=== PATIENT | male | born 1990 | race Caucasian/White ===

== ENCOUNTER 2016-07-28 12:27 | Emergency (ER) ==
[2016-07-28] MEDS ORDERED: ZOFRAN ODT PO ONE (13:35)
[2016-07-28] MEDS ORDERED: LEVSIN-SL SL ONE (13:36)
--- NOTE | 2016-07-28 13:43 | PROVIDER DOCUMENTATION ---
HPI-Abdominal Pain/GI Problem - General Source: patient - History of Present Illness-ABD Nature of Presenting Problems: Pt is 26 y/o M presents to the ED with abdominal pain. Pt states seen at [facility] and was diagnosed with gastroenteritis. Pt states pain has worsened. Pt states D and N but denies V. Abdominal Pain Onset Location: reports: generalized abdomen Pain Radiation: reports: no radiation Quality of Pain: reports: cramping Severity in ED: reports: mild Onset/Duration: reports: unsure Timing: reports: still present Activities at Onset: reports: light activity Exposure to sick contacts?: No Modifying Factors: improves with: nothing Associated Symptoms: reports: diarrhea, nausea. denies: vomiting Last BM: unsure Dark Stools Present?: reports: none noticed Rectal Bleeding: reports: none Rectal Pain: reports: none Emesis Description: reports: none Bruising or Bleeding Gums?: No Similar Symptoms Previously?: Yes Recently seen or treated by another doctor?: Yes <Zari Walker - Last Filed: 07/28/16 13:38> <Sophy Ruiz - Last Filed: 07/28/16 15:29> - General Chief Complaint: Return/Recheck Stated Complaint: DIARRHEA/ABD PAIN Time Seen by Provider: 07/28/16 13:26 Allergies/Adverse Reactions: Patient Allergies Allergy/AdvReac Type Severity Reaction Status Date / Time No Known Allergies Allergy Verified 07/02/16 12:29 Home Medications: Home Medication List Medication Instructions Recorded Confirmed Last Taken Type Magnesium 250 mg PO BID 09/06/13 07/02/16 07/02/16 History Potassium Chloride E.r. [Klor-Con] 60 meq PO BID #60 tablet 11/21/13 07/02/16 Rx Spironolactone [Aldactone] 50 mg PO BID #60 tablet 11/21/13 07/02/16 07/02/16 Rx Dicyclomine [Bentyl] 10 mg PO AC + HS #20 capsule 06/20/16 07/02/16 07/02/16 Rx Metronidazole [Flagyl] 500 mg PO BID #20 tablet 06/20/16 07/02/16 07/02/16 Rx Ciprofloxacin HCl [Cipro] 500 mg PO BID #14 tablet 07/02/16 Unknown Rx Omeprazole 20 mg PO DAILY #30 capsule. 07/02/16 Unknown Rx Ondansetron [Zofran] 4 mg PO Q6H PRN PRN #20 tablet 07/02/16 Unknown Rx Ondansetron [Zofran] 4 mg PO Q6H PRN PRN #20 tablet 07/28/16 Unknown Rx Review of Systems - Adult - REVIEW OF SYSTEMS - ADULT Constitutional: denies: chills, fever Eyes: denies: blurred vision, double vision Ears, Nose, Mouth & Throat: denies: ear pain, nose pain, throat pain Cardiovascular: reports: irregular heart rate (tachy). denies: chest pain, heart murmur Respiratory: denies: cough, shortness of breath, wheezing Gastrointestinal: reports: abdominal pain, diarrhea, nausea. denies: vomiting Genitourinary: denies: dysuria, hematuria Musculoskeletal: denies: bone pain, joint pain, neck pain Integumentary: denies: hives, itching Neurological: denies: dizziness/vertigo, headache/migraines Psychiatric: reports: no symptoms reported Endocrine: reports: no symptoms reported Hematologic/Lymphatic: reports: no symptoms reported Allergic/Immunologic: reports: no symptoms reported All Other Systems: Reviewed and Negative <Zari Walker - Last Filed: 07/28/16 13:38> Past History - Adult - PAST MEDICAL HISTORY-ADULT Review of Records: reports: Nursing Assessment Review, Medications Reviewed, Social history reviewed & non-contributory. 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 on dangers of tobacco.: discussed smoking cessation Substance Use: alcohol, marijuana Alcohol Use Frequency: occasionally Number of drinks per typical drinking period:: 2 drinks Living Situation: family <Zari Walker - Last Filed: 07/28/16 13:38> Physical Exam-General - PHYSICAL EXAM-ADULT Initial Vital Signs Reviewed: Yes - CONSTITUTIONAL General Appearance: appears well, alert, no apparent distress - EYES Eyes: PERRL/EOMI, pink conjunctivae, fundi clear, no AV nicking - HEAD, EARS, NOSE, MOUTH & THROAT HENMT: normocephalic/atraumatic, moist mucous membranes, normal ENT inspection, TMs normal, pharynx normal - NECK Neck: non-tender, full range of motion, supple, normal inspection - RESPIRATORY Respiratory: chest non-tender, lungs clear, normal breath sounds, no pleuratic chest pain, no respiratory distress, no accessory muscle use - CARDIOVASCULAR Cardiovascular: normal peripheral pulses, no edema, no gallop, no JVD, no murmur , tachycardia - GASTROINTESTINAL (ABDOMEN) Abdominal Exam: non tender, soft, no organomegaly, no pulsatile mass, abnormal bowel sounds (hypo active) - LYMPHATIC Lymphatic: no adenopathy - MUSCULOSKELETAL Back Exam: normal inspection, no CVA tenderness, no vertebral tenderness Extremity: normal range of motion, non-tender, normal gait, normal inspection, no pedal edema, no calf tenderness, normal capillary refill - SKIN Integumentary: normal color, normal turgor, warm/dry - NEUROLOGIC Neurologic: grossly normal - PSYCHIATRIC Psych/Mental Status: normal mood/affect, oriented x 3 <Zari Walker - Last Filed: 07/28/16 13:38> Progress - PLAN OF CARE/RESULTS Progress/Plan/Lab Results: Discussed results and plan of care with patient. Patient agrees with plan and verbalizes understanding. Vital Signs Temp Pulse Resp BP Pulse Ox 07/28/16 12:46 98 F 110 H 18 134/87 98 No Known Allergies Allergy (Verified 07/02/16 12:29) Magnesium 250 mg PO BID 09/06/13 Potassium Chloride E.r. [Klor-Con] 60 meq PO BID #60 tablet 11/21/13 Spironolactone [Aldactone] 50 mg PO BID #60 tablet 11/21/13 Dicyclomine [Bentyl] 10 mg PO AC + HS #20 capsule 06/20/16 Metronidazole [Flagyl] 500 mg PO BID #20 tablet 02/03/17 Ciprofloxacin HCl [Cipro] 500 mg PO BID #14 tablet 07/02/16 Omeprazole 20 mg PO DAILY #30 capsule. 07/02/16 Ondansetron [Zofran] 4 mg PO Q6H PRN PRN #20 tablet 07/02/16 Orders Category Date Time Status FLAT/UPRIGHT ABD/1 VIEW CHEST [RAD] Stat Exams 07/28/16 14:48 Taken Hyoscyamine Subl [Levsin-Sl] Med 07/28/16 13:36 Discontinued 0.125 mg SL NOW ONE Ondansetron Odt [Zofran Odt] Med 07/28/16 13:35 Discontinued 4 mg PO NOW ONE - XRAY 1 XRAY Study: Chest, Abdomen XRAY Interpretation: Negative (Adaitz) <Sophy Ruiz - Last Filed: 07/28/16 15:29> Departure <Zari Walker - Last Filed: 07/28/16 13:38> - Departure Time of Disposition Order: 15:27 Certified Medical Emergency: Emergent <Sophy Ruiz - Last Filed: 07/28/16 15:29> - Departure DIAGNOSIS: Diarrhea Qualifiers: Diarrhea type: unspecified type Qualified Code(s): R19.7 - Diarrhea, unspecified Abdominal pain Qualifiers: Abdominal location: unspecified location Qualified Code(s): R10.9 - Unspecified abdominal pain Disposition: HOME 01 Condition: Stable Additional Instructions: Follow up with primary care physician Follow up with ornithology teacher Take medications as directed Continue taking medications previously prescribed Return to ED for any concerns or worsening of symptoms ED Follow Up Instructions: You have been treated by a care provider in the Emergency Department. These instructions are being provided to you so you can have an understanding of how to care for yourself upon discharge. Upon discharge from the Emergency Department, you are responsible for making arrangements for follow-up care by a physician of your choice. Take all prescribed medications as directed. Return to the Emergency Department immediately for any new or worsening symptoms. You may call the Physician Referral phone number at [phone] to obtain a list of Physicians who are taking new patients. Prescriptions: Ondansetron [Zofran] 4 mg PO Q6H PRN PRN #20 tablet PRN Reason: Nausea Referrals: None,PCP [Primary Care Provider] - Regino Castellanos MD [STAFF PHYSICIAN] - Attestation - Scribe Verification/Attestation Scribe:: Zari Walker Acting as Scribe for:: Sophy Ruiz Scribe documention review:: This chart was documented by a scribe and accurately reflects the service the provider performed and the decisions made by the provider. <Zari Walker - Last Filed: 07/28/16 13:38> - Physician/ NICK Attestation Patient care was provided by Advanced Practice Provider:: Yes Advanced Practice Provider:: Sophy Ruiz Advanced Practice Provider documentation review:: The Mid-level provider documentation, treatment plan and medical decision making was reviewed by the physician who agrees with all treatment and medical decision making by the MLP. <Sophy Ruiz - Last Filed: 07/28/16 15:29> Physician Attestation
[2016-07-28 15:43] VITALS: BP 121/65
--- NOTE | 2016-07-28 18:17 | Diag Imaging Result Document ---
PROCEDURE NAME: FLAT/UPRIGHT ABD/1 VIEW CHEST - 07/28/2016 FRONTAL CHEST X-RAY AND 2 VIEWS OF THE ABDOMEN: COMPARISON: 06/24/2016. FINDINGS: The chest is clear. There is a nonobstructive bowel gas pattern. No free air or abnormal calcifications. IMPRESSION: No acute disease.
== END 2016-07-28 15:42 | disposition home or self-care (01) ==
LOC: P.ED 12:27
DX: R10.9 Unspecified abdominal pain (principal); R19.7 Diarrhea, unspecified; R00.0 Tachycardia, unspecified; R11.0 Nausea; E26.81 Bartter's syndrome; F17.210 Nicotine dependence, cigarettes, uncomplicated; Z71.6 Tobacco abuse counseling; Z79.899 Other long term (current) drug therapy
CPT/HCPCS: 74022

== ENCOUNTER 2018-10-27 00:08 | Inpatient (IN) ==
[2018-10-27 01:05] LABS: BILIRUBIN URINE NEGATIVE (NEGATIVE); BLOOD URINE NEGATIVE (NEGATIVE); COLOR YELLOW; GLUCOSE URINE NEGATIVE (NEGATIVE); KETONE URINE NEGATIVE (NEGATIVE); LEUKOCYTES URINE NEGATIVE (NEGATIVE); NITRITE URINE NEGATIVE (NEGATIVE); PH URINE 6.5; PROTEIN URINE NEGATIVE (NEGATIVE); SP GRAVITY URINE 1.014; TURBIDITY URINE CLEAR (CLEAR); UR EPITHELIAL CELLS <10 /HPF (<10); URINE BACTERIA NEGATIVE /HPF; URINE RBC <10 /HPF (<10); URINE SOURCE CLEAN CATCH; URINE WBC <10 /HPF (<10); UROBILINOGEN URINE NORMAL (NORMAL)
[2018-10-27 01:18] LABS: BASO# 0.06 X1000 (0.0-0.2); BASO% 0.7 % (0.0-0.8); EOS# 0.57 X1000 (0.0-0.7); EOS% 6.7 % (0.0-10.0); HEMATOCRIT 44.5 % (42.0-52.0); HEMOGLOBIN 16.6 g/dL (14.0-18.0); LYMPH% 40.2 % (20.5-51.1); MCHC 37.3 g/dL (33-37); MCV 80.5 FL (81-99); MONO# 0.65 X1000 (0.11-0.59); MONO% 7.7 % (1.7-9.3); MPV 10.4 FL (7.4-10.4); NEUT# 3.78 X1000 (1.4-6.5); NEUT% 44.7 % (42.2-75.2); PLT 285 X1000 (130-400); RBC 5.53 XMIL (4.7-6.1); RDW 13.3 % (11.5-14.5); WBC 8.46 X1000 (4.8-10.8)
[2018-10-27] MEDS ORDERED: POTASSIUM CHLORIDE 20% LIQUID PO ONE (01:26)
[2018-10-27 01:29] LABS: AGAP 15; ALB/GLOB RATIO 1.5; ALBUMIN 4.7 g/dL (3.5-5.0); ALKALINE PHOSPHATASE 66 U/L (32-122); BUN 11 mg/dL (8-22); CALCIUM 9.1 mg/dL (8.8-10.2); CHLORIDE 95 mmol/L (98-107); COSMO 277; CREATININE 0.8 mg/dL (0.7-1.2); ESTIMATED GFR > 60; GLUCOSE 95 mg/dL (70-104); GOT 20 U/L (10-34); GPT 18 U/L (10-44); SODIUM 139 mmol/L (136-145); TCO2 29 mmol/L (25-35); TOTAL BILIRUBIN 0.35 mg/dL (0.20-1.00); TOTAL PROTEIN 7.9 g/dL (6.3-8.3)
[2018-10-27] MEDS ORDERED: MAGNESIUM SULFATE 2 GM/S.W.I. 2 GM/50 ML IVPB IV ONE ×3 (01:49→14:39)
--- NOTE | 2018-10-27 02:37 | PROVIDER DOCUMENTATION ---
This chart was entered by Delaney Rendon Scribe, acting as scribe for Diallo Molina MD. HPI-General Adult - General Chief Complaint: Back Pain Stated Complaint: KIDNEY PAIN Time Seen by Provider: 10/27/18 00:33 Source: patient Allergies/Adverse Reactions: Patient Allergies Allergy/AdvReac Type Severity Reaction Status Date / Time No Known Allergies Allergy Verified 10/12/18 03:52 Home Medications: Home Medication List Medication Instructions Recorded Confirmed Last Taken Type Magnesium 250 mg PO BID 11/10/17 10/12/18 10/11/18 History Potassium Chloride E.r. [Klor-Con] 60 meq PO BID 11/10/17 10/12/18 10/11/18 History Spironolactone 50 mg PO BID 11/10/17 10/12/18 10/11/18 History - History of Present Illness -Gen Adult Nature of Presenting Problems: 28 yom presents to er w/ c/o lower back pain. pt has kidney disorder, gitelman's syndrome, and believes it is causing his back pain. pt denies nvd, incontinence and fever. pt is a smoker Review of Systems - Adult - REVIEW OF SYSTEMS - ADULT Constitutional: reports: no symptoms reported Eyes: reports: no symptoms reported Ears, Nose, Mouth & Throat: reports: no symptoms reported Cardiovascular: reports: no symptoms reported Respiratory: reports: no symptoms reported Gastrointestinal: reports: no symptoms reported Genitourinary: reports: no symptoms reported Musculoskeletal: reports: see HPI, back pain (lower back poss due to gitelman's syndrome). denies: bone pain, frequent leg cramps, muscle weakness Integumentary: reports: no symptoms reported Neurological: reports: no symptoms reported Psychiatric: reports: no symptoms reported Endocrine: reports: no symptoms reported Hematologic/Lymphatic: reports: no symptoms reported Allergic/Immunologic: reports: no symptoms reported All Other Systems: Reviewed and Negative Past History - Adult - PAST MEDICAL HISTORY-ADULT Review of Records: reports: Old Records Reviewed, Nursing Assessment Review, Medications Reviewed, Social history reviewed & non-contributory. 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 on dangers of tobacco.: Discussed manners to quit use, and f/u contacts for add'l counseling. Substance Use: alcohol Alcohol Use Frequency: occasionally Physical Exam-General - PHYSICAL EXAM-ADULT Initial Vital Signs Reviewed: Yes - CONSTITUTIONAL General Appearance: alert, mild distress. negative: lethargic, slow to respond, obtunded - EYES Eyes: PERRL/EOMI, pink conjunctivae - HEAD, EARS, NOSE, MOUTH & THROAT HENMT: normocephalic/atraumatic, moist mucous membranes, normal ENT inspection - NECK Neck: non-tender, full range of motion, supple, normal inspection - RESPIRATORY Respiratory: chest non-tender, lungs clear, normal breath sounds - CARDIOVASCULAR Cardiovascular: normal peripheral pulses, regular rate, rhythm - GASTROINTESTINAL (ABDOMEN) Abdominal Exam: normal bowel sounds, non tender, soft - MUSCULOSKELETAL Back Exam: negative: normal inspection, ecchymosis, swelling Extremity: normal range of motion, non-tender, normal inspection Peripheral Pulses: radial (R): 2+, radial (L): 2+ - SKIN Integumentary: normal color, normal turgor, warm/dry - NEUROLOGIC Neurologic: grossly normal, no motor/sensory deficits - PSYCHIATRIC Psych/Mental Status: normal mood/affect, normal thought content, normal thought process, oriented x 3 Progress - PLAN OF CARE/RESULTS Progress/Plan/Lab Results: Vital Signs - 8 hr 10/27/18 00:16 Temperature 99.0 F Pulse Rate 87 Respiratory Rate 15 Blood Pressure 138/92 O2 Sat by Pulse Oximetry 100 Orders Category Date Time Status CBC WITH ELECTRONIC DIFF [HEME] Stat Lab 10/27/18 00:33 Uncollected COMPREHENSIVE METABOLIC PANEL [CHEM] Stat Lab 10/27/18 00:33 Uncollected URINALYSIS W/POSS RFLX CULT [URINALYSIS] Stat Lab 10/27/18 00:33 Uncollected Result Diagrams: 10/27/18 00:26 10/27/18 00:26 - EKG 1 Time of EKG reading by physician:: 01:54 EKG Read and Signed by:: Diallo Molina Rate: 76 Rhythm: sinus QRS: normal MA Interval: normal Departure - Departure Date of Disposition Decision: 10/27/18 Time of Disposition Decision: 02:36 DIAGNOSIS: Gitelman syndrome, Hypokalemia, Hypomagnesemia Disposition: ADMITTED INPATIENT 09 Certified Medical Emergency: Emergent Condition: Serious Referrals and Follow-Ups: None,PCP [Primary Care Provider] - - Critical Care Note This patient required my direct & personal management of CC.: Yes Total Time (mins): 31 Critical Care Statement: This patient required my direct personal management to treat or rule out processes, the absence of which, could potentiallly result in sudden, clinically significant life or limb threatening deterioration. Attestation - Physician/ NICK Attestation Patient care was provided by Advanced Practice Provider:: No The physician spent face to face time with patient:: Yes Advanced Practice Provider documentation review:: Supervising physician onsite and consulted in the evaluation and care of this patient. The physician did have a face to face encounter with the patient. This chart was documented by the indicated scribe, (Delaney Rendon Scribe) and accurately reflects the services I performed and decisions made by me, Diallo Molina MD, as attested by the provider's signature.
[2018-10-27] MEDS ORDERED: NS 1,000 ML IV SCH (03:30)
[2018-10-27] MEDS ORDERED: DUONEB (A & A) INH PRN (03:33)
[2018-10-27] MEDS: POTASSIUM CHLORIDE 20 MEQ/SWI 20 MEQ/100 ML IVPB IV SCH ×2 (05:33→08:00)
--- NOTE | 2018-10-27 06:38 | EKG Report ---
Test Performed on : 10/27/2018 01:50:33 AM Test Reason : hypokalemia Blood Pressure : / mmHG Vent. Rate : 076 BPM Atrial Rate : 076 BPM P-R Int : 156 ms QRS Dur : 116 ms QT Int : 376 ms P-R-T Axes : 080 066 072 degrees QTc Int : 423 ms Normal sinus rhythm. Possible Left atrial enlargement Incomplete right bundle branch block Borderline ECG When compared with ECG of 12-OCT-2018 04:33, (Unconfirmed) No significant change was found Unconfirmed Result
--- NOTE | 2018-10-27 06:41 | Diag Imaging Result Doc PS360 ---
THORACO-LUMBAR SPINE - 10/27/2018 INDICATION: back pain TECHNIQUE: Three views COMPARISON: Chest ray 11/10/2017 FINDINGS: Alignment is anatomic. Vertebral body heights and intervertebral disc spaces are preserved. Neural foramina are patent. Soft tissues are clear. IMPRESSION: Negative exam. Electronically signed by Kp Beltran 10/27/2018 6:38 AM
[2018-10-27] MEDS: ULTRAM PO PRN ×2 (08:01→20:36)
[2018-10-27 08:27] LABS: MAGNESIUM 2.2 mg/dL (1.5-2.7); POTASSIUM 2.7 mmol/L (3.5-5.1)
[2018-10-27] MEDS ORDERED: KLOR-CON PO SCH (09:00)
[2018-10-27 14:18] LABS: MAGNESIUM 1.7 mg/dL (1.5-2.7); POTASSIUM 2.7 mmol/L (3.5-5.1)
[2018-10-27] MEDS ORDERED: KLOR-CON PO ONE (14:39)
[2018-10-27] MEDS: ALDACTONE PO SCH (20:36)
[2018-10-27] MEDS: MAG-OX PO SCH (20:36)
[2018-10-27] MEDS: KLOR-CON PO SCH (20:37)
[2018-10-27 21:41] LABS: MAGNESIUM 2.1 mg/dL (1.5-2.7); POTASSIUM 2.6 mmol/L (3.5-5.1)
[2018-10-27] MEDS ORDERED: NORCO-7.5 PO ONE (22:31)
[2018-10-28] MEDS ORDERED: MORPHINE IV ONE (02:03)
[2018-10-28] MEDS ORDERED: NEUTRA-PHOS PO SCH (02:15)
[2018-10-28 05:18] LABS: BASO# 0.05 X1000 (0.0-0.2); BASO% 0.6 % (0.0-0.8); EOS# 0.64 X1000 (0.0-0.7); EOS% 7.9 % (0.0-10.0); HEMATOCRIT 46.4 % (42.0-52.0); HEMOGLOBIN 16.7 g/dL (14.0-18.0); LYMPH# 2.94 X1000 (1.2-3.4); LYMPH% 36.2 % (20.5-51.1); MCH 29.7 PG (27-31); MCV 82.6 FL (81-99); MONO% 9.9 % (1.7-9.3); MPV 10.4 FL (7.4-10.4); NEUT# 3.69 X1000 (1.4-6.5); NEUT% 45.4 % (42.2-75.2); PLT 253 X1000 (130-400); RBC 5.62 XMIL (4.7-6.1); RDW 13.7 % (11.5-14.5); WBC 8.12 X1000 (4.8-10.8)
[2018-10-28 05:52] LABS: MAGNESIUM 2.1 mg/dL (1.5-2.7); PHOSPHORUS 3.1 mg/dL (2.7-4.5)
[2018-10-28 05:57] LABS: AGAP 11; BUN 10 mg/dL (8-22); CALCIUM 8.8 mg/dL (8.8-10.2); CHLORIDE 99 mmol/L (98-107); COSMO 271; CREATININE 0.7 mg/dL (0.7-1.2); ESTIMATED GFR > 60; GLUCOSE 95 mg/dL (70-104); POTASSIUM 3.2 mmol/L (3.5-5.1); SODIUM 136 mmol/L (136-145); TCO2 26 mmol/L (25-35)
[2018-10-28] MEDS: KLOR-CON PO SCH (08:10)
[2018-10-28] MEDS: ALDACTONE PO SCH (08:10)
[2018-10-28] MEDS: MAG-OX PO SCH (08:11)
[2018-10-28 11:34] VITALS: BP 123/90
== END 2018-10-28 12:55 | disposition home or self-care (01) | DRG 700 ==
LOC: ED 00:08 → 3S 04:49 → SUATTDRO 04:49
PROVIDERS: ATTEND Internal Medicine
CPT/HCPCS: 72080; 80048; 80053; 81001; 83735; 83970; 84100; 84132; 85025; 85651; 86140; 87040; 87088; 93005; 94761; A9270; J2270; J3475; J3480; J7030

== ENCOUNTER 2019-03-15 05:28 | Observation (INO) ==
--- NOTE | 2019-03-15 05:48 | PROVIDER DOCUMENTATION ---
HPI-Musculoskeletal Pain/Inj - GENERAL Chief Complaint: Flank Pain Stated Complaint: FLANK PAIN Time Seen by Provider: 03/15/19 05:42 Source: patient - HX OF PRESENT ILLNESS-MUSKULOSKELTAL Nature of Presenting Problem: thursday am started having bilateral flank pain persisted until now no change in his ability to urinate no fever or chills. has gitelman syndrome Quality of Pain: reports: aching Severity in ED: moderate Onset/Duration: 24 hours ago Timing: still present, getting worse Modifying Factors: improves with: nothing Any recent injury?: No Locality of Occurance: Home Similar Symptoms Previously?: Yes Recently seen or treated by another doctor?: No Review of Systems - Adult - REVIEW OF SYSTEMS - ADULT Constitutional: reports: no symptoms reported Eyes: reports: no symptoms reported Ears, Nose, Mouth & Throat: reports: no symptoms reported Cardiovascular: reports: no symptoms reported Respiratory: reports: chronic cough, wheezing, other (copd) Gastrointestinal: denies: hematemesis, diarrhea, vomiting Genitourinary: reports: flank pain. denies: dysuria, discharge, frequency, hematuria, urinary retention, urgency Musculoskeletal: reports: back pain Integumentary: reports: no symptoms reported Neurological: reports: no symptoms reported Psychiatric: reports: no symptoms reported Endocrine: reports: no symptoms reported Hematologic/Lymphatic: reports: no symptoms reported Allergic/Immunologic: reports: no symptoms reported Past History - Adult - PAST MEDICAL HISTORY-ADULT Review of Records: reports: Nursing Assessment Review, Medications Reviewed, Social history reviewed & non-contributory. 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) Musculoskeletal: reports: denies history Neurological: reports: denies history Psychiatric: reports: anxiety Endocrine/Immune: reports: denies history Other Conditions: reports: denies history - PRIOR SURGERIES/PROCEDURES Surgical/Procedure History: reports: other (wisdom teeth) - IMMUNIZATION STATUS Childhood Immunizations: See Nurse Assessment Flu Vaccine: See Nurse Assessment - FAMILY HISTORY Family History: reviewed, not pertinent - SOCIAL HISTORY Smoking: cigarettes Physical Exam-Injury Related - Physical Exam-Injury Related General Appearance: appears well, alert, no apparent distress Eyes: PERRL/EOMI, pink conjunctivae Head, Ears, Nose, Mouth & Throat: normocephalic/atraumatic, moist mucous membranes Neck: non-tender, full range of motion, supple Respiratory: lungs clear, no respiratory distress Cardiovascular: regular rate, rhythm Abdominal Exam: normal bowel sounds, non tender, soft Lymphatic: no adenopathy Back Exam: CVA tenderness Extremity: normal range of motion, non-tender, normal gait Integumentary: normal color, warm/dry, blanching Neurologic: grossly normal Psych/Mental Status: oriented x 3 Progress - PLAN OF CARE/RESULTS Progress/Plan/Lab Results: Vital Signs - 8 hr 03/15/19 05:32 03/15/19 05:46 Temperature 97.8 F Pulse Rate 90 Respiratory Rate 18 Blood Pressure 117/75 Laboratory Results - last 24 hr 03/15/19 03/15/19 03/15/19 05:38 05:45 05:45 WBC 10.62 RBC 4.79 Hgb 13.9 L Hct 40.3 L MCV 84.1 MCH 29.0 MCHC 34.5 RDW Std Deviation 13.1 Plt Count 296 MPV 10.1 Immature Gran % (Auto) 0.4 Neut % (Auto) 54.1 Lymph % (Auto) 29.3 [place] % (Auto) 9.3 Eos % (Auto) 6.1 Baso % (Auto) 0.8 Immature Gran # (Auto) 0.04 Neut # (Auto) 5.75 Lymph # (Auto) 3.11 [place] # (Auto) 0.99 H Eos # (Auto) 0.65 Baso # (Auto) 0.08 Sodium 137 Potassium 2.4 L* Chloride 92 L Carbon Dioxide 34 Anion Gap 11 BUN 11 Creatinine 0.7 Estimated GFR/1.73 m2 > 60 BUN/Creatinine Ratio 16 Glucose 95 Calculated Osmolality 273 Calcium 9.5 Magnesium 1.1 L Total Bilirubin 0.20 AST 29 ALT 34 Alkaline Phosphatase 72 Total Protein 7.9 Albumin 4.3 Globulin 4.0 Albumin/Globulin Ratio 1.0 Urine Source CLEAN CATCH Urine Color YELLOW Urine Clarity CLEAR Urine pH 7.0 Ur Specific [place] 1.005 Urine Protein NEGATIVE Urine Ketones NEGATIVE Urine Blood NEGATIVE Urine Nitrite NEGATIVE Urine Bilirubin NEGATIVE Urine Urobilinogen NORMAL Urine Microscopic RBC <10 Urine WBC NEGATIVE Urine Microscopic WBC <10 Ur Epithelial Cells <10 Urine Crystals NONE SEEN Urine Bacteria NEGATIVE Urine Casts NONE SEEN Urine Yeast NONE SEEN Urine Glucose NEGATIVE Orders Category Date Time Status CBC WITH DIFF [HEME] Stat Lab 03/15/19 05:45 Completed COMPREHENSIVE METABOLIC PANEL [CHEM] Stat Lab 03/15/19 05:45 Completed MAGNESIUM [CHEM] Stat Lab 03/15/19 05:[address] W/POSS RFLX CULT [URINALYSIS] Stat Lab 03/15/19 05:38 Completed Magnesium Sulfate 2 gm/S.w.i. Med 03/15/19 06:42 Active 2 gm in 50 ml IV NOW Potassium Chloride E.r. [Klor-Con] Med 03/15/19 06:42 Discontinued 60 meq PO NOW ONE Result Diagrams: 03/15/19 05:45 03/15/19 05:45 - CONSULTS/PCP/HOSPITALIST Notification #1 *Consult/PCP/Hospitalist*: KANE Time Discussed: 08:35 Consult Disposition: Admit - CHANGE OF SHIFT REPORT (ED Provider) 2 Report Given and Care Transferred to:: anila ellington Time of Transfer: 06:44 Items Pending: Labs Departure - Departure Date of Disposition Decision: 03/15/19 Time of Disposition Decision: 08:35 DIAGNOSIS: Gitelman syndrome, Hypokalemia, Hypomagnesemia Disposition: ADMITTED INPATIENT 09 Certified Medical Emergency: Emergent Condition: Stable Referrals and Follow-Ups: None,PCP [Primary Care Provider] - - Critical Care Note This patient required my direct & personal management of CC.: No Attestation - Physician/ NICK Attestation The physician spent face to face time with patient:: Yes Advanced Practice Provider documentation review:: Supervising physician onsite and consulted in the evaluation and care of this patient. The physician did have a face to face encounter with the patient.
[2019-03-15 06:19] LABS: BASO# 0.08 X1000 (0.0-0.2); BASO% 0.8 % (0.0-0.8); EOS# 0.65 X1000 (0.0-0.7); EOS% 6.1 % (0.0-10.0); HEMATOCRIT 40.3 % (42.0-52.0); HEMOGLOBIN 13.9 g/dL (14.0-18.0); IMM GRAN# 0.04 X1000 (0.0-0.04); IMM GRAN% 0.4 % (0.0-0.5); LYMPH# 3.11 X1000 (1.2-3.4); LYMPH% 29.3 % (20.5-51.1); MCHC 34.5 g/dL (33-37); MCV 84.1 FL (81-99); MONO# 0.99 X1000 (0.11-0.59); MONO% 9.3 % (1.7-9.3); MPV 10.1 FL (7.4-10.4); NEUT# 5.75 X1000 (1.4-6.5); NEUT% 54.1 % (42.2-75.2); PLT 296 X1000 (130-400); RBC 4.79 XMIL (4.7-6.1); RDW 13.1 % (11.5-14.5); WBC 10.62 X1000 (4.8-10.8)
[2019-03-15 06:21] LABS: BILIRUBIN URINE NEGATIVE (NEGATIVE); BLOOD URINE NEGATIVE (NEGATIVE); CLARITY CLEAR (CLEAR); COLOR YELLOW; GLUCOSE URINE NEGATIVE (NEGATIVE); KETONE URINE NEGATIVE (NEGATIVE); LEUKOCYTES URINE NEGATIVE (NEGATIVE); NITRITE URINE NEGATIVE (NEGATIVE); PROTEIN URINE NEGATIVE (NEGATIVE); SP GRAVITY URINE 1.005; UROBILINOGEN URINE NORMAL
[2019-03-15 06:24] LABS: URINE BACTERIA NEGATIVE /HFP; URINE CAST NONE SEEN /LPF; URINE CRYSTAL NONE SEEN /HPF; URINE EPITHELIAL CELLS <10 /HPF (<10); URINE RBC <10 /HPF (<10); URINE SOURCE CLEAN CATCH; URINE WBC <10 /HPF (<10); URINE YEAST NONE SEEN /HPF
[2019-03-15 06:33] LABS: ESTIMATED GFR > 60
[2019-03-15 06:37] LABS: AGAP 11; ALBUMIN 4.3 g/dL (3.5-5.0); ALKALINE PHOSPHATASE 72 U/L (32-122); BUN 11 mg/dL (8-22); CALCIUM 9.5 mg/dL (8.8-10.2); CHLORIDE 92 mmol/L (98-107); COSMO 273; CREATININE 0.7 mg/dL (0.7-1.2); GLUCOSE 95 mg/dL (70-104); GOT 29 U/L (10-34); GPT 34 U/L (10-44); MAGNESIUM 1.1 mg/dL (1.5-2.7); SODIUM 137 mmol/L (136-145); TCO2 34 mmol/L (25-35); TOTAL PROTEIN 7.9 g/dL (6.3-8.3)
[2019-03-15 06:40] LABS: POTASSIUM 2.4 mmol/L (3.5-5.1)
[2019-03-15] MEDS ORDERED: MAGNESIUM SULFATE 2 GM/S.W.I. 2 GM/50 ML IVPB IV ONE (06:42)
[2019-03-15] MEDS ORDERED: KLOR-CON PO ONE (06:42)
[2019-03-15] MEDS ORDERED: NS + KCL 20 MEQ 1,000 ML IV ONE (08:51)
--- NOTE | 2019-03-15 10:24 | EKG Report ---
Test Performed on : 03/15/2019 09:12:19 AM Test Reason : electrolyte imbalance Blood Pressure : / mmHG Vent. Rate : 071 BPM Atrial Rate : 071 BPM P-R Int : 150 ms QRS Dur : 116 ms QT Int : 406 ms P-R-T Axes : 073 061 075 degrees QTc Int : 441 ms Normal sinus rhythm. Incomplete right bundle branch block Borderline ECG When compared with ECG of 26-JAN-2019 04:26, No significant change was found Unconfirmed Result
[2019-03-15] MEDS ORDERED: ZOFRAN IV PRN (10:32)
[2019-03-15 11:52] LABS: MAGNESIUM 1.7 mg/dL (1.5-2.7); POTASSIUM 2.9 mmol/L (3.5-5.1)
[2019-03-15] MEDS ORDERED: NORCO-7.5 PO PRN (12:33)
--- NOTE | 2019-03-15 13:15 | HISTORY AND PHYSICAL ---
PRIMARY CARE PROVIDER: None. CHIEF COMPLAINT: Bilateral flank pain. HISTORY OF PRESENT ILLNESS: Mr. Gray is a 28-year-old male with a history of Gitelman syndrome, COPD, anxiety disorder, multiple admissions for electrolyte abnormalities who came to the hospital for low back pain that had been ongoing for a couple of days and was nonradiating, no nausea, vomiting, diarrhea, dysuria or hematuria. Workup in the ED revealed hypokalemia and hypomagnesium. Urinalysis was negative. He was initiated on potassium as well as magnesium. Will recheck follow-up potassium and magnesium. His EKG continues to show normal sinus rhythm with an incomplete right bundle branch block as has been seen on previous EKGs with no changes. REVIEW OF SYSTEMS: A 12-point review of systems was complete and negative except for those mentioned in the HPI. PAST MEDICAL HISTORY: Gitelman syndrome, COPD, anxiety disorder, nicotine use, substance abuse. PAST SURGICAL HISTORY: Denies. SOCIAL HISTORY: He works at an [email or web address] where it remains hot. He lives with family, continues to smoke cigarettes daily, occasional alcohol, positive daily marijuana use. FAMILY HISTORY: Positive for hypertension and heart disease. ALLERGIES: No known drug allergies. HOME MEDICATIONS: [id number] magnesium and potassium. PHYSICAL EXAMINATION: VITAL SIGNS: Temperature 98.2, heart rate 78, respirations 18, blood pressure 124/74, O2 saturation 94% on room air. GENERAL: Mr. Gray is a 28-year-old male who is lying on the bed in no acute distress. HEENT: Atraumatic, normocephalic. PERRL. NECK: Supple. Trachea midline. CARDIOVASCULAR: S1 and S2 appreciated. No murmurs, gallops or rubs noted. RESPIRATORY: Lung sounds clear bilaterally. ABDOMEN: Soft, nontender and nondistended. Positive bowel sounds x4 quadrants. EXTREMITIES: Lower extremities negative for edema. NEUROLOGIC: No focal deficits noted. DIAGNOSTIC DATA: EKG normal sinus rhythm with an incomplete right bundle branch as seen on previous EKGs. LABORATORY DATA: WBC 10, hemoglobin 13, hematocrit 40, platelet count 296,000. Chemistries: sodium 137, potassium 2.4, BUN 11, creatinine 0.7, glucose 95, magnesium 1.1. Repeat potassium 2.9. ASSESSMENT AND PLAN: 1. Gitelman syndrome complicated with hypokalemia and hypomagnesium. His magnesium has been corrected with supplementation. His potassium is slightly lower. Will continue with normal saline with KCl as well as place him on potassium chloride 20 mEq p.o. t.i.d. Will recheck his levels in the a.m. Continue to monitor him on telemetry. Recheck an EKG in the a.m. 2. Low back pain. This has been checked out before. Will continue with pain control with [place]. 3. COPD without exacerbation. Continues to smoke tobacco. Will need continued smoking cessation education. 4. Further recommendations to follow physician evaluation, laboratory and diagnostic data. Dictated by SYDNEY Perdomo for Joshua Sal MD cc: Joshua Sal MD
[2019-03-15] MEDS: KLOR-CON PO SCH ×2 (14:30→18:56)
[2019-03-15 15:58] VITALS: BP 115/69
[2019-03-16] MEDS ORDERED: MAG-OX PO SCH (09:00)
== END 2019-03-15 19:06 | disposition left against medical advice (07) ==
LOC: P.ED 05:28 → P.MEDSURG 05:28
PROVIDERS: ATTEND Family Medicine